=== PATIENT | male | born 1970 | race Caucasian/White ===

== ENCOUNTER → 2019-05-12 | Outpatient (REF) | payer BC | LOC: M LAB REF 14:47 | PROVIDERS: ATTEND Specialist | DX: B37.84 Candidal otitis externa (principal) ==

== ENCOUNTER → 2020-03-30 | Outpatient (CLI) | payer BC ==
[~2020-03-30] MED LIST: ISOVUE-370 76% 100ML VIAL As Ordered ONE
--- NOTE | 2020-03-30 16:31 | REP ---
INDICATION: DISORDER OF THE EYELID NONSPECIFIC. Status post removal of benign cyst left eyebrow. Similar symptoms developed on the right. COMPARISON: Comparison CT study March 02, 2019.. TECHNIQUE: Contrast enhancement dose is 75 mL of intravenous Isovue 370. Helical scanning is acquired and 3 mm axial images re-formatted bone and soft tissue window settings. Coronal and sagittal MPR images are generated. FINDINGS: No intraconal or extraconal orbital mass is seen on either side. The previously noted nonspecific nodule along the superolateral margin of the orbit on the left seen on March 02, 2019 is no longer apparent consistent with its surgical removal. There is a similar ill-defined nodule in the identical location on the right on today's study measuring 11 mm in greatest diameter by 6 mm by 10 mm. It is identical in appearance to the lesion seen contralaterally in February 2019. It does not appear to be related to the lack overall apparatus in the orbit. Ocular globes are unremarkable and symmetric. Optic nerves are symmetric. There is a mucous retention cyst again noted in the ethmoid sinus on the right. Visualized paranasal sinuses are otherwise clear. The deep facial and visualized intracranial soft tissues are unremarkable. IMPRESSION: Nonspecific soft tissue nodule in this soft tissues adjacent to the superolateral margin of the orbit on the right. Consistent with contralateral epidermoid cyst. This is identical in appearance to the findings noted on the left at the time of the prior CT study. <Electronically signed by Rk Knapp > 03/30/20 [id number]
== END ==
LOC: M RAD 15:32
PROVIDERS: ATTEND Ophthalmology
DX: H02.89 Other specified disorders of eyelid (principal); Z98.890 Other specified postprocedural states; J34.1 Cyst and mucocele of nose and nasal sinus
CPT/HCPCS: 70481; Q9967

== ENCOUNTER → 2020-11-10 | Outpatient (CLI) | payer BC ==
--- NOTE | 2020-11-10 13:32 | REPVR ---
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 Radiation optimization: All CT scans at this facility use at least one of these dose optimization techniques: automated exposure control; mA and/or kV adjustment per patient size (includes targeted exams where dose is matched to clinical indication); or iterative reconstruction. Contrast material: ISOVUE 370; Contrast volume: 75 ml; Contrast route: INTRAVENOUS (IV); COMPARISON: CT Orbit with contrast 03/30/2020 4:04 PM FINDINGS: Globes are intact. Intra and extraconal orbital structures are grossly normal. No evidence of orbital fracture. No evidence of displaced nasal bone fracture. There is isolated opacification of a posterior right ethmoid air cell. Paranasal sinuses are otherwise clear. Mild, asymmetric right periorbital soft tissue swelling. There is mild, asymmetric stranding over the superolateral margin of the right orbit. Previously seen rounded soft tissue density in this region is no longer identified with certainty. No definite evidence of persistent soft tissue mass or fluid collection in the periorbital regions on either side. IMPRESSION: Mild, asymmetric right periorbital soft tissue swelling and stranding in over the superolateral margin of the right orbit. Previously seen rounded soft tissue density in the superolateral right orbital region is no longer identified with certainty. Findings may be consistent postsurgical change. No definite abnormal fluid collection or soft tissue mass in the periorbital region. No evidence of abscess. Electronically signed by: Butch Loera On 11/10/2020 13:31:44 PM
== END ==
LOC: M RAD 11:34
PROVIDERS: ATTEND Ophthalmology
DX: H02.9 Unspecified disorder of eyelid (principal)

== ENCOUNTER → 2021-08-13 | Outpatient (CLI) | payer BC | LOC: M WUC 11:36 | PROVIDERS: ATTEND Internal Medicine | DX: M54.32 Sciatica, left side (principal) ==

== ENCOUNTER → 2022-02-21 | Outpatient (CLI) | payer BC | LOC: M RAD 10:34 | PROVIDERS: ATTEND Ophthalmology | DX: R22.0 Localized swelling, mass and lump, head (principal) | CPT/HCPCS: 70481; Q9967 ==

== ENCOUNTER → 2022-05-12 | Outpatient (CLI) | payer BC | LOC: M RAD 14:06 | PROVIDERS: ATTEND Nurse Practitioner Adult Health | DX: R91.8 Other nonspecific abnormal finding of lung field (principal); Z87.891 Personal history of nicotine dependence ==

== ENCOUNTER → 2022-08-21 | Outpatient (CLI) | payer BC | LOC: M PLAIMG 11:12 | PROVIDERS: ATTEND Nurse Practitioner Adult Health | DX: R91.8 Other nonspecific abnormal finding of lung field (principal) ==

== ENCOUNTER → 2022-09-04 | Outpatient (REF) | payer BC | LOC: M LAB REF 16:17 | PROVIDERS: ATTEND Nurse Practitioner Family | DX: J02.9 Acute pharyngitis, unspecified (principal) ==

== ENCOUNTER → 2023-01-28 | Outpatient (CLI) | payer BC | LOC: M WUC 10:11 | PROVIDERS: ATTEND Physician Assistant | DX: M25.561 Pain in right knee (principal) ==

== ENCOUNTER → 2023-05-11 | Outpatient (CLI) | payer BC | LOC: M PLAIMG 13:54 | PROVIDERS: ATTEND Nurse Practitioner Adult Health | DX: R91.8 Other nonspecific abnormal finding of lung field (principal) ==

== ENCOUNTER → 2023-11-20 | Outpatient (CLI) | payer BC | LOC: M RAD 14:37 | PROVIDERS: ATTEND Nurse Practitioner Adult Health | DX: R91.8 Other nonspecific abnormal finding of lung field (principal) ==

== ENCOUNTER → 2024-02-08 | Outpatient (REF) | payer BC ==
[2024-02-08 17:07] LABS: APPEARANCE, URINE CLEAR (CLEAR); BACTERIA, URINE AUTO NEGATIVE (NEGATIVE); BILIRUBIN, URINE AUTO NEGATIVE (NEGATIVE); BLOOD, URINE BLOOD NEGATIVE (NEGATIVE); COLOR, URINE YELLOW (YELLOW); GLUCOSE, URINE (UA) AUTO NEGATIVE (NEGATIVE); KETONE, URINE AUTO NEGATIVE (NEGATIVE); LEUKOCYTE ESTERASE, URINE AUTO NEGATIVE (NEGATIVE); MUCUS, URINE SMALL (NEGATIVE); NITRITE, URINE AUTO NEGATIVE (NEGATIVE); PROTEIN, URINE AUTO NEGATIVE (NEGATIVE); RBC, URINE AUTO 0 /HPF (0-3); SPECIFIC GRAVITY URINE AUTO 1.019 (1.002-1.035); SQUAMOUS EPITHELIAL CELL UR AU 0 /HPF (0-6); UROBILINOGEN, URINE AUTO 0.2 mg/dL (0.0-2.0); WBC, URINE AUTO 1 /HPF (0-3)
[2024-02-08 17:08] LABS: HEMATOCRIT 48.1 % (42.0-52.0); HEMOGLOBIN 15.7 g/dl (13.5-17.5); MEAN CORPUSCULAR HEMOGLOBIN 28.9 pg (27.0-33.0); MEAN CORPUSCULAR HGB CONC 32.6 g/dl (32.0-36.5); MEAN CORPUSCULAR VOLUME 88.4 fl (80.0-96.0); PLATELET COUNT, AUTOMATED 271 10^3/uL (150-450); RED BLOOD COUNT 5.44 10^6/uL (4.30-6.10)
[2024-02-08 17:21] LABS: HEMOGLOBIN A1c 5.5 % (4.0-6.0)
[2024-02-08 17:23] LABS: PSA SCREENING 1.19 NG/ML (< 4.00)
[2024-02-08 17:26] LABS: ALBUMIN 3.6 G/DL (3.2-5.2); ALKALINE PHOSPHATASE 86 U/L (46-116); ALT/SGPT 36 U/L (7.0-40); AST/SGOT 11 U/L (<34); BILIRUBIN,TOTAL 0.7 MG/DL (0.3-1.2); BLOOD UREA NITROGEN 14 MG/DL (9-23); CALCIUM LEVEL 8.8 MG/DL (8.5-10.1); CARBON DIOXIDE LEVEL 26 MMOL/L (20-31); CHLORIDE LEVEL 109 MMOL/L (98-107); CHOLESTEROL LEVEL 140 MG/DL (<200); CHOLESTEROL RISK RATIO 4.03 (<5); CREATININE FOR GFR 1.16 MG/DL (0.70-1.30); GLOMERULAR FILTRATION RATE > 60.0 (>56); GLUCOSE, FASTING 108 MG/DL (60-100); HDL CHOLESTEROL 34.7 MG/DL (>40); LDL CHOLESTEROL 83.3 MG/DL (<100); NON-HDL-C 105.3 MG/DL; POTASSIUM SERUM 4.7 MMOL/L (3.5-5.1); SODIUM LEVEL 138 MMOL/L (136-145); TOTAL PROTEIN 7.1 G/DL (5.7-8.2); TRIGLYCERIDES LEVEL 110 MG/DL (<150)
[2024-02-08 17:28] LABS: THYROID STIMULATING HORMONE 1.027 uIU/ML (0.55-4.78)
[2024-02-09 13:04] LABS: WHITE BLOOD COUNT 6.7 10^3/uL (4.0-10.0)
== END ==
LOC: M LAB REF 16:41
PROVIDERS: ATTEND Physician Assistant
DX: E11.9 Type 2 diabetes mellitus without complications (principal); E05.90 Thyrotoxicosis, unspecified without thyrotoxic crisis or storm; E78.2 Mixed hyperlipidemia

== ENCOUNTER → 2024-04-25 | Outpatient (REF) | payer BC ==
[2024-04-25 20:00] LABS: LIPASE 48 U/L (12-53)
[2024-04-25 20:02] LABS: AMYLASE 49 U/L (30-118)
== END ==
LOC: M LABDRAWC 16:45
PROVIDERS: ATTEND Physician Assistant
DX: K85.90 Acute pancreatitis without necrosis or infection, unspecified (principal)

== ENCOUNTER → 2024-12-19 | Outpatient (CLI) | payer BC | LOC: M PLAIMG 12:24 | PROVIDERS: ATTEND Nurse Practitioner Adult Health | DX: R91.8 Other nonspecific abnormal finding of lung field (principal) ==

== ENCOUNTER → 2025-01-30 | Outpatient (CLI) | payer BC ==
[2025-01-30 17:15] LABS: ESTIMATED AVERAGE GLUCOSE 148.0 MG/DL (60-110)
== END ==
LOC: M WUC 12:17
PROVIDERS: ATTEND Physician Assistant
DX: E11.9 Type 2 diabetes mellitus without complications (principal)

== ENCOUNTER → 2025-05-10 | Outpatient (REF) | payer BC ==
[2025-05-10 12:53] LABS: ALT/SGPT 28.0 U/L (7.0-40); AST/SGOT 18.0 U/L (<34); BASO # 0.0 10^3/uL (0.0-0.2); BASO % 0.5 % (0.0-1.0); CALCIUM LEVEL 8.8 MG/DL (8.5-10.1); CARBON DIOXIDE LEVEL 26.0 MMOL/L (20-31); CHLORIDE LEVEL 103.0 MMOL/L (98-107); CHOLESTEROL LEVEL 121.0 MG/DL (<200); CHOLESTEROL RISK RATIO 3.57 (<5); CREATININE FOR GFR 1.4 MG/DL (0.70-1.30); EOS # 0.4 10^3/uL (0.0-0.5); EOS % 5.7 % (0.0-3.0); GLOMERULAR FILTRATION RATE 59.7 (>56); LDL CHOLESTEROL 54.4 MG/DL (<100); LYMPH # 1.1 10^3/uL (1.5-5.0); LYMPH % 17.6 % (24.0-44.0); MONO # 0.4 10^3/uL (0.0-0.8); MONO % 7.0 % (2.0-8.0); NEUTROPHILS # 4.2 10^3/uL (1.5-8.5); NEUTROPHILS % 68.9 % (36.0-66.0); NON-HDL-C 87.2 MG/DL; PLATELET COUNT, AUTOMATED 241 10^3/uL (150-450); POTASSIUM SERUM 4.7 MMOL/L (3.5-5.1); PSA SCREENING 1.28 NG/ML (< 4.00); SODIUM LEVEL 139.0 MMOL/L (136-145); TRIGLYCERIDES LEVEL 164.0 MG/DL (<150)
[2025-05-10 13:19] LABS: AMORPHOUS SEDIMENT MODERATE (NEGATIVE); APPEARANCE, URINE TURBID (CLEAR); BACTERIA, URINE AUTO NEGATIVE (NEGATIVE); BILIRUBIN, URINE AUTO NEGATIVE (NEGATIVE); BLOOD, URINE BLOOD NEGATIVE (NEGATIVE); GLUCOSE, URINE (UA) AUTO NEGATIVE (NEGATIVE); KETONE, URINE AUTO NEGATIVE (NEGATIVE); LEUKOCYTE ESTERASE, URINE AUTO NEGATIVE (NEGATIVE); MUCUS, URINE MODERATE (NEGATIVE); NITRITE, URINE AUTO NEGATIVE (NEGATIVE); PROTEIN, URINE AUTO 1+ mg/dL (NEGATIVE); RBC, URINE AUTO 0 /HPF (0-3); SPECIFIC GRAVITY URINE AUTO 1.026 (1.002-1.035); SQUAMOUS EPITHELIAL CELL UR AU 0 /HPF (0-6); UROBILINOGEN, URINE AUTO 0.2 mg/dL (0.0-2.0); WBC, URINE AUTO 1 /HPF (0-3)
[2025-05-10 14:05] LABS: ESTIMATED AVERAGE GLUCOSE 134.0 MG/DL (60-110)
== END ==
LOC: M LABDRAWC 08:32
PROVIDERS: ATTEND Physician Assistant
DX: E11.9 Type 2 diabetes mellitus without complications (principal); E05.90 Thyrotoxicosis, unspecified without thyrotoxic crisis or storm; R35.1 Nocturia; F31.9 Bipolar disorder, unspecified; E78.6 Lipoprotein deficiency
CPT/HCPCS: 36415; 80053; 80061; 81001; 83036; 84443; 85025; 87086; G0103